=== PATIENT | female | born 2000 | race African-American/Black ===

== ENCOUNTER 2023-08-22 02:37 | Emergency (ER) | payer OTHER ==
[~2023-08-22] VITALS: Ht 167.6 cm; Wt 66.2 kg
[~2023-08-22 02:37] MED LIST: CEFDINIR300 MG PO; IBUPROFEN200 MG PO; THERAFLU SEVER1 EAC3 PO; depo provera
[2023-08-22 03:15] VITALS: PULSE 72; RESP 18; TEMP 98.6
[2023-08-22 04:04] VITALS: BP 121/80; PULSE 72; RESP 18; TEMP 98.6; O2SAT 99
[2023-08-22] MEDS: IBUPROFEN 600 MG TAB PO STA (04:06)
== END 2023-08-22 04:16 | disposition home or self-care (01) ==
LOC: FSED 02:51
DX: M77.52 Other enthesopathy of left foot and ankle (principal); F17.210 Nicotine dependence, cigarettes, uncomplicated; Z91.040 Latex allergy status; Z79.3 Long term (current) use of hormonal contraceptives
CPT/HCPCS: 99283